=== PATIENT | female | born 1960 | race Caucasian/White ===

== ENCOUNTER 2018-12-16 08:27 | Outpatient (CLI) | payer MEDICAID ==
[2018-12-16] VITALS (17 sets, daily range): BP systolic 132–185; BP diastolic 52–97; PULSE 62–90; TEMP 98.4
[~2018-12-16] VITALS: Ht 170.2 cm; Wt 128.1 kg
[~2018-12-16 08:27] MED LIST: ADDERALL30 MG PO; MIRAPEX 0.0.125 MG/T PO; MOBIC 7.5MG7.5 MG PO; SEROQUEL XR150 MG PO; TALWIN PO; TOPAMAX200 MG PO; XANAX 1MG1 MG PO
[2018-12-16] MEDS ORDERED: TOPAMAX200 MG PO (08:49)
--- NOTE | 2018-12-16 09:25 | NUR ---
PT WAS TAKEN TO CT AND PLACED IN POSITION. MONITORING EQUIPMENT PLACED. IMAGES TAKEN AND SENT
--- NOTE | 2018-12-16 09:40 | NUR ---
PT WAS GIVEN 1 MG VERSED AND 25 FENTANYL
--- NOTE | 2018-12-16 09:55 | NUR ---
AT 0953 PT WAS GIVEN 0.5MG VERSED and 25 mcg fentanyl
--- NOTE | 2018-12-16 10:00 | NUR ---
procedure completed. site is cdi to back.
--- NOTE | 2018-12-16 10:23 | NUR ---
Report from Alisha LGEER. VSS. Pt denies pain and needs at this time.
--- NOTE | 2018-12-16 15:16 | NUR ---
INT discontinued intact. Ambulated to transport van
== END 2018-12-16 15:16 | disposition home or self-care (01) ==
LOC: COL.RAD 08:27
DX: R91.1 Solitary pulmonary nodule (principal); F17.210 Nicotine dependence, cigarettes, uncomplicated; G51.0 Bell's palsy; H60.332 Swimmer's ear, left ear
CPT/HCPCS: J2250; J3010